=== PATIENT | male | born 1950 | race Caucasian/White ===

== ENCOUNTER 2018-11-28 11:33 | Emergency (ER) | payer BC ==
[2018-11-28 12:00] VITALS: BP 119/85
--- NOTE | 2018-11-28 12:20 | UC ---
Laceration HPI - HPI Summary HPI Summary: 68 year old male who hit the framing of vincenzoing he was buidling causing a laceration to the top of his head, no LOC. Tetanus up to date. - History Of Current Complaint Chief Complaint: UCLaceration Stated Complaint: HEAD LAC Time Seen by Provider: 11/28/18 12:07 Hx Obtained From: Patient Laceration Location: Head Mechanism Of Injury: Blunt Trauma Onset/Duration: Sudden Onset Severity: Mild Pain Intensity: 1 Aggravating Factors: Nothing - Allergies/Home Medications Allergies/Adverse Reactions: Allergies Allergy/AdvReac Type Severity Reaction Status Date / Time No Known Allergies Allergy Verified 11/28/18 12:01 PMH/Surg Hx/FS Hx/Imm Hx Previously Healthy: Yes - Surgical History Surgical History: None Surgery Procedure, Year, and Place: APPY, BILATERAL ARTHROSCOPY WITH MENISCUS REPAIR - Family History Known Family History: Positive: Hypertension - Social History Alcohol Use: Daily Alcohol Amount: BEER DAILY Substance Use Type: None Smoking Status (MU): Never Smoked Tobacco - Immunization History Most Recent Tetanus Shot: 2018 Review of Systems All Other Systems Reviewed And Are Negative: Yes Skin: Positive: Other - laceration top of head, bleeding controlled Is Patient Immunocompromised?: No Physical Exam Triage Information Reviewed: Yes Appearance: Well-Appearing, No Pain Distress, Well-Nourished Vital Signs: Initial Vital Signs Temp 98.7 F 11/28/18 11:57 Pulse 63 11/28/18 11:57 Resp 12 11/28/18 11:57 BP 119/85 11/28/18 11:57 Pulse Ox 99 11/28/18 11:57 Vital Signs Reviewed: Yes Eyes: Positive: Conjunctiva Clear - PERRLA, EOMI Musculoskeletal Exam: Normal Musculoskeletal: Positive: Other: - Skull intact and non-tender Neurological Exam: Normal Neurological: Positive: Other: - CN II-XII intact Psychological Exam: Normal Skin: Positive: Other - 3.0 cm jagged laceration to top of head. Bleeding controlled Laceration Repair - Laceration Repair 1 Description: Irregular Laceration Size After Repair: Length (cm) - 3.0 cm Modified For Repair: No Cleansing Completed Via Routine Prep: Yes Irrigation With Pressure Irrigation Device: Yes Closure Material: Jordana - 2 jordana applied without difficulty Closure Method: Single Layer Suture Of: Skin Laceration Course/Dx - Course/Dx Course Of Treatment: Pt is awake and alert here. He chose not to have suturing or local anesthesia "Just do whatever is faster". He did not care about scarring because it is the top of his head. Last tetanus was about 2-3 years ago. - Diagnosis Provider Diagnosis: Laceration of head Discharge ED - Sign-Out/Discharge Documenting (check all that apply): Patient Departure All imaging exams completed and their final reports reviewed: No Studies - Discharge Plan Condition: Good Disposition: HOME Patient Education Materials: Head Injury (ED), Staple Care (ED) Referrals: Lauro Paris MD [Primary Care Provider] - Additional Instructions: Tylenol as needed for pain. Follow up with your primary care provider on 5 days for staple removal. Go to the ER via cALLING [phone] if you have any signs of head injury...PLEASE SHARE INSTRUCTIONS WITH YOUR CO-WORKERS. - Billing Disposition and Condition Condition: GOOD Disposition: Home
== END 2018-11-28 12:25 | disposition home or self-care (01) ==
LOC: UCEAST 11:33
DX: S01.91XA Laceration without foreign body of unspecified part of head, initial encounter (principal); W22.8XXA Striking against or struck by other objects, initial encounter; Y92.9 Unspecified place or not applicable
CPT/HCPCS: 12001; 99211; G0463

== ENCOUNTER 2019-02-21 08:44 | Inpatient (IN) | payer BC ==
--- NOTE | 2019-02-20 17:10 | HP ---
DATE OF ADMISSION: 02/21/2019. DATE OF OFFICE VISIT: 02/17/2019. ATTENDING SURGEON: Dr. Trupti Cartagena * (dictated by MICHAEL Canchola). PROCEDURE: Right total knee arthroplasty. CHIEF COMPLAINT: Right knee pain. HISTORY OF PRESENT ILLNESS: Mr. Burgess is a 68-year-old gentleman with severe end- stage osteoarthritis of the right knee. He has failed conservative treatment and elected to proceed with a right total knee arthroplasty. PAST MEDICAL HISTORY: Enlarged prostate. PAST SURGICAL HISTORY: Appendectomy, right knee surgery times one, left knee surgery times two. CURRENT MEDICATIONS: Finasteride, Ambien, and Zaleplon. ALLERGIES: No known drug allergies. FAMILY HISTORY: Colon cancer and prostate cancer. SOCIAL HISTORY: He is a 68-year-old gentleman who lives alone. He does not smoke or use drugs or alcohol. REVIEW OF SYSTEMS: A complete 14 point review of systems was reviewed with the patient. It was all negative or noncontributory. PHYSICAL EXAMINATION GENERAL: He is well-developed, well-nourished, in no acute distress. VITAL SIGNS: He stands 69 inches tall, weighs 155 pounds. Blood pressure 140/ 85, heart rate 71. HEENT: Normocephalic, atraumatic. NECK: Supple. No palpable lymph nodes. CARDIO: Regular rate and rhythm. Strong S1, S2. PULMONARY: Lungs are clear to auscultation bilaterally. ABDOMEN: Soft, nontender, nondistended. MUSCULOSKELETAL: Right lower extremity: The skin is intact. There are no open wounds or abrasions. He has a moderate effusion of the right knee joint. He has a varus deformity of the knee. Range of motion is 10 to 110 degrees of flexion with patellofemoral crepitus. He has a 2+ dorsalis pedis pulse. He is able to dorsiflex and plantarflex and has intact sensation. NEUROLOGIC: He is alert and oriented times three. ASSESSMENT AND PLAN: Mr. Burgess is a 68-year-old gentleman with severe end- stage osteoarthritis of the right knee. He has failed conservative treatment and elected to proceed with a right total knee arthroplasty. His surgery is scheduled for 02/21/[address] Cartagena discussed the risks and benefits of the surgery at today's visit and all of his questions were answered. He will follow-up with Dr. Cartagena two weeks after the surgery. Because of his known enlarged prostate, we are asking the nurses use a coude catheter for Mr. Burgess prior to his surgery. MICHAEL CANCHOLA [id number]/[facility] #: [id number] [place]
[~2019-02-21 08:44] MED LIST: Acetaminophen TAB* 325 MG PO ONE; Buffered Lidocaine 1% SYRIN* 1 ML/SYRINGE INTRADERM ONE; Famotidine IV* 10 MG/ML 2 ML (20 mg) IV ONE; Gabapentin CAP(*) 300 MG PO ONE; Lactated Ringers 1000 ML Bag* 1,000 ML IV SCH; Tranexamic Acid 1,000 MG in NS 0.9% 50 ML* (outpatient use) IV SCH; celeCOXIB CAP* 100 MG PO ONE
--- OUTSIDE RECORDS SUMMARY | 2019-02-21 08:47 | XMS REPORT | Continuity of Care Document ---
:1950 External Reference #:[id number] Author Name Trupti Cartagena M.D. (transmitted by agent of provider Lucero Jessica) Address [address] [place] [id number] Care Team Providers Name Role Phone Lauro Paris MD - Family Medicine Care Team Information Insurance Sales Producer Hermes Jauregui, PT, MPS, OCS Care Team Information Insurance Sales Producer - Physical Therapist Problems Active Problems Provider Date Benign paroxysmal positional vertigo Miguel Navarrete M.D. Onset: 2014 Viral labyrinthitis Miguel Navarrete M.D. Onset: 05/10/2014 Social History Type Date Description Comments Sex Unknown Tobacco Use Start: Unknown Never Smoked Cigarettes Tobacco Use Start: Unknown Never Smoked Cigars Tobacco Use Start: Unknown Never Smoked A Pipe Smokeless Tobacco Never Used Smokeless Tobacco ETOH Use Consumes 1 beer per day Tobacco Use Start: Unknown Patient has never smoked Smoking Status Reviewed: 02/17/19 Patient has never smoked Exercise Type/Frequency Exercises regularly Allergies, Adverse Reactions, Alerts Description No Known Drug Allergies Medications Active Medications SIG Qnty Indications Ordering Provider Date Lauro Rubin MD 10mg Capsules FinChad Sol MD 5mg Tablets Zolpidem Tartrate ER TK 1 T PO AT Unknown Bedtime. Maximum 12.5mg Tablets ER D Dose Of 1 T Per Day. MDD 1 Immunizations Description No Information Available Vital Signs Date Vital Result Comment 02/17/2019 9:04am Height 69 inches 5'9" Weight 159.00 lb Heart Rate 71 /min BP Systolic 140 mmHg BP Diastolic 85 mmHg Body Temperature 97.9 F Pain Level 2 BMI (Body Mass Index) 23.5 kg/m2 12/19/2018 2:16pm Height 69 inches 5'9" Weight 155.00 lb Heart Rate 62 /min BP Systolic 128 mmHg BP Diastolic 78 mmHg Body Temperature 96.6 F Pain Level 4 BMI (Body Mass Index) 22.9 kg/m2 Results Description No Information Available Procedures Description No Information Available Medical Devices Description No Information Available Encounters Type Date Location Provider Dx Diagnosis Office Visit 12/19/2018 [facility] Trupti Cartagena, M17.11 [facility], [facility] M21.161 Varus deformity, not elsewhere classified, right knee M25.561 Pain in right knee Assessments Date Code Description Provider 02/17/2019 M21.161 Varus deformity, not elsewhere classified, Trupti Cartagena M.D. right knee 02/17/2019 M25.561 Pain in right knee Trupti Cartagena M.D. 02/17/2019 M17.11 Unilateral primary osteoarthritis, right knee Trupti Cartagena M.D. 12/19/2018 M17.11 Unilateral primary osteoarthritis, right knee Trupti Cartagena M.D. 12/19/2018 M21.161 Varus deformity, not elsewhere classified, Trupti Cartagena M.D. right knee 12/19/2018 M25.561 Pain in right knee Trupti Cartagena M.D. Plan of Treatment Future Appointment(s):03/10/2019 3:30 pm - Trupti Cartagena M.D. at [facility] at Gzwbdr3402/21/2019 1:30 pm - Andres Tadeo PA-C at [facility] at Rriusf9402/21/2019 1:30 pm - MICHAEL Mason at [facility] at Apfmlu6002/21/2019 1:30 pm - Trupti Cartagena M.D. at [facility] at [id number]/17/2019 - Trupti Cartagena M.D.M21.161 Varus deformity, not elsewhere classified, right kneeFollow up:Follow up: 2 weeks after cqlmeejR35.561 Pain in right kneeM17.11 Unilateral primary osteoarthritis, right knee Functional Status Description No Information Available Mental Status Description No Information Available Referrals Description No Information Available
[2019-02-21] MEDS ORDERED: Gabapentin CAP(*) 300 MG ONE (09:09)
[2019-02-21] MEDS ORDERED: ceFAZolin 2 GM in NS PREMIX(*) 2 GM/100 ML BAG IVPB ONE (09:09)
[2019-02-21] MEDS ORDERED: celeCOXIB CAP* 100 MG ONE (09:09)
[2019-02-21] MEDS ORDERED: Acetaminophen TAB* 325 MG ONE ×2 (09:09→09:24)
[2019-02-21] MEDS ORDERED: Buffered Lidocaine 1% SYRIN* 1 ML/SYRINGE INTRADERM ONE (09:09)
[2019-02-21] MEDS ORDERED: Famotidine IV* 10 MG/ML 2 ML (20 mg) ONE (09:09)
[2019-02-21] MEDS ORDERED: ROPIVACAINE 5 MG/ML 30 ML BTL (0.5%) ONE ×2 (10:16→11:07)
[2019-02-21] MEDS ORDERED: Midazolam* 1 MG/ML 5 ML VIAL (5 MG) ONE (10:22)
[2019-02-21] MEDS ORDERED: fentaNYL* 50 MCG/ML 2 ML VIAL (100 MCG VIAL) ONE (10:48)
[2019-02-21] MEDS ORDERED: Sevoflurane* BOTTLE ONE (10:49)
[2019-02-21] MEDS ORDERED: Desflurane* 240 ML INH ONE (10:49)
[2019-02-21] MEDS ORDERED: Propofol* 10 MG/ML 20 ML BTL ONE ×2 (11:26→11:27)
[2019-02-21] MEDS ORDERED: diPHENhydraMINE IV* 50 MG/ML 1 ml VIAL (BENADRYL) IV PRN (13:51)
[2019-02-21] MEDS ORDERED: Magnesium Hydroxide LIQ* 30 ML UDC PO PRN (13:51)
[2019-02-21] MEDS ORDERED: diPHENhydraMINE PO* 25 MG PO PRN (13:51)
[2019-02-21] MEDS ORDERED: Ondansetron ODT TAB* 4 MG PO PRN (13:51)
[2019-02-21] MEDS ORDERED: oxyCODONE TAB* 5 MG TAB PO PRN (13:51)
[2019-02-21] MEDS ORDERED: Polyethylene Glycol 3350* 17 GM PACKET PO PRN (13:51)
[2019-02-21] MEDS ORDERED: Ondansetron INJ* 2 MG/ML VIAL IV PRN (13:51)
[2019-02-21] MEDS ORDERED: Morphine INJ* 2 MG/ML 1 ML SYRINGE (TWO MG - NEW SYRINGE VERSION) IV PRN (13:51)
[2019-02-21] MEDS ORDERED: Ondansetron TAB* 4 MG PO PRN (13:51)
[2019-02-21] MEDS ORDERED: ZALEPLON 10 MG PO PRN (13:53)
--- NOTE | 2019-02-21 15:32 | PN ---
Progress Note - Progress Note Date of Service: 02/21/19 Note: resting comfortably with no significant complaints; Able to DF/PF, 2+ DP pulse, and intact sensation
[2019-02-21] MEDS: Lactated Ringers 1000 ML Bag* 1,000 ML IV SCH (15:53)
[2019-02-21] MEDS: traMADol TAB* 50 MG PO PRN ×2 (16:02→22:34)
[2019-02-21] MEDS: oxyCODONE/Acetamin 5/325 MG* TAB PO PRN (16:35)
[2019-02-21] MEDS: Acetaminophen TAB* 325 MG PO SCH (16:38)
--- NOTE | 2019-02-21 17:26 | PN ---
Progress Note - Progress Note Date of Service: 02/21/19 Note: Pt was a CAT call after he got nauseated and had a 30 sec syncopal episode when in a recliner. His stated that his eyes "rolled back" and he became unresponsive. His vitals showed Hr at 47-he had been bradycardic as per d/w his nurse. After the syncope-when CAT arrived pt was AAOx3, vomiting and c/o nausea. ECG shows no acute abn. Pt is neurologically intact. Resp: CTA b/l CV: RRR, no murmur, Abd :soft, NT, BS+ Extr: R knee in cryo unit, no pedal edema b/l AP: syncope-suspect vagal episode in pt who was about to voint. Tx with Zofran. Advised to limit diet Check labs Telem x 12 hr overnight D/w DR. Cartagena
[2019-02-21 18:18] LABS: BUN/Creatinine Ratio 17.6 (8-20); Blood Urea Nitrogen 12 mg/dL (6-24); CO2 Carbon Dioxide 24 mmol/L (22-32); Calcium 8.7 mg/dL (8.6-10.3); Chloride 107 mmol/L (101-111); EGFR African American 140.3 (>60); Glucose 94 mg/dL (70-100); Sodium 139 mmol/L (135-145)
[2019-02-21 18:26] LABS: ABS Basophils 0.1 10^3/ul (0-0.2); ABS Lymphocytes 0.9 10^3/ul (1.0-4.8); ABS Monocytes 0.5 10^3/ul (0-0.8); ABS Neutrophils 8.8 10^3/ul (1.5-7.7); Eosinophil % 0.4 %; Hematocrit 38 % (42-52); Lymphocyte % 8.5 %; Mean Corpuscular HGB Conc 34 g/dL (31-36); Mean Corpuscular Hemoglobin 32 pg (27-31); Mean Corpuscular Volume 93 fL (80-94); Mean Platelet Volume 8.4 fL (7.4-10.4); Platelet Count 154 10^3/uL (150-450); Red Cell Distribution Width 14 % (10-15); White Blood Count 10.3 10^3/uL (3.5-10.8)
--- NOTE | 2019-02-21 19:08 | OP ---
Operative Report - Blank - Operative Report Date of Operation: 02/21/19 Note: GALO ANNE 1950 Date of Surgery: 02/21/19 Trupti Cartagena MD Local Owner Operator Truck Driver: Priscilla RODRIGUEZ did help throughout the procedure with preparation of the knee, wound retraction, manipulation of the knee, and wound closure. Anesthesiologist: Dr Monterroso Anesthesia Type: Spinal Preoperative Diagnosis: Right severe degenerative osteoarthritis of the knee Postoperative Diagnosis: As above Procedure Performed: Right Total Knee Arthroplasty Tourniquet time: 56 minutes Complications: None Specimen: Bone and cartilage from the right knee joint sent to pathology. Hardware Used: Cemented Bell and Nephew total knee hardware was used - For the femur a size 6 right oxinium legion posterior stabilized femoral component, for the tibia a size 5 right manju II tibial baseplate, for the insert a size 9mm posterior stabilized articular polyethylene insert, and for the patella a size 32 3-peg all poly patella. Brief History/Indication: GALO ANNE was known in clinic and had a history of severe right knee pain and swelling. He failed conservative treatment with anti- inflammatories, pain pills, intra-articular injections and physical therapy. He elected to undergo right total knee arthroplasty due to continued pain and decreased quality of life. Radiographs showed severe end stage osteoarthritis of the knee with bone on bone contact. Informed consent was obtained from the patient. He understood the risks of surgery included but were not limited to: bleeding, infection, damage to nearby structures, intraoperative fracture, nerve palsy, failure of the hardware, early loosening, knee stiffness or loss of motion, anesthesia complications, stroke, heart attack, blood clot and . He wished to proceed. Intra-Operative Findings: Intraoperatively the patient was noted to have severe loss of cartilage in all 3 compartments of the knee. Description of the Procedure: GALO ANNE was identified in the preanesthesia unit. His right knee was marked as the correct operative side. Informed consent was signed and placed in the chart. The patient was taken to the operating room and placed under anesthesia without complication. A hernandez catheter was placed. A tourniquet was placed on the right thigh. The right lower extremity was prepped and draped in the usual sterile fashion. Preoperative time-out was made to correctly identify the patient, side and site. Appropriate intraoperative antibiotics were given within one hour of incision. Tourniquet was inflated. A midline incision was made and carried sharply down to the extensor mechanism. A new 10 blade was used to make a standard medial parapatellar arthrotomy. The patella was subluxed laterally. Electrocautery was used to dissect soft tissue off the superomedial tibia to the midsagittal plane. The knee was flexed up. The anterior horn of the lateral meniscus and the ACL were sharply incised. A drill was used to enter the distal femur. The intramedullary distal femoral cutting guide was pinned on the distal femur. The oscillating saw was used to make the distal femoral cut. The external rotation guide was pinned on the distal femur and the distal femur was sized to a size 6. The size 6 multi-cutting jig was pinned on the distal femur. The oscillating saw was used to make the appropriate 4 chamfer cuts. Next the PCL was completely released. The extramedullary tibial cutting guide was pinned on the proximal tibia and the oscillating saw was used to make the proximal tibial cut perpendicular to the mechanical axis of the tibia. The bone was carefully removed. The knee was brought out into full extension. The spacer block was placed and had excellent fit with the knee in full extension. The medial and lateral ligaments were well balanced. The flexion and extension gaps were well balanced. The knee was flexed up. Lamina risk and compliance analytics director was placed both medially and laterally. Any remaining meniscus was removed with electrocautery. Curved osteotome was used to remove any posterior osteophytes. The tibial tray and drop edi were placed and confirmed a satisfactory tibial cut. The size 6 right femoral trial was impacted onto the distal femur. This trial had excellent fit and stability. The box for the posterior stabilized implant was prepared using a box cut osteotome and a reamer. Next a tibial tray trial and 9 mm insert trial was placed. The knee was taken through a range of motion and had full extension to 130 degrees of flexion. Patellofemoral tracking was satisfactory. The patella was inverted and sized to a size 32. Three peg holes were drilled through the size 32 drill guide. The trial patella was placed and the knee was taken through a range of motion. There was satisfactory patellofemoral tracking. All trials were removed. The tibia was subluxed anteriorly and sized to a size 5. The proximal tibial was prepared with a size 5 keel punch. All bony cut surfaces were irrigated with sterile saline and dried. Final implants were cemented into place starting with the tibia, followed by the femur, and last the patella. A 9 mm insert trial was placed and the knee was brought into full extension. Tourniquet was turned down and the knee was copiously irrigated with sterile saline. Electrocautery was used to obtain meticulous hemostasis. Once the cement had fully cured, the insert trial was removed. Any excess cement was removed from around the hardware and capsule. Final insert chosen was a 9 mm posterior stabilized Manju II articular insert size 5-6. Stability of the insert was checked and noted to be stable. The extensor mechanism was closed using number 1 vicryls. The rest of the incision was closed in a layered fashion using 0 and 2-0 vicryls. The skin was closed using 3-0 nylon suture. Sterile xeroform, 4x4s and webril were used to cover the incision. Manuel wrap and cold pack were used to cover the dressings. The patients anesthesia was reversed without difficulty. He was taken to the PACU in stable condition. Intended weight-bearing will be as tolerated.
[2019-02-21 19:24] LABS: Anion Gap 8 mmol/L (2-11)
[2019-02-21] MEDS: ceFAZolin 1 GM ADVAN(*) 1 GM in NS 0.9% 50 ML* 50 ML IVPB SCH (20:10)
[2019-02-21] MEDS ORDERED: Zolpidem TAB* 10 MG PO PRN (22:00)
[2019-02-21] MEDS: Docusate CAP* 100 MG PO SCH (22:34)
[2019-02-21] MEDS: Magnesium Hydroxide LIQ* 30 ML UDC PO SCH (22:34)
[2019-02-21] MEDS: Finasteride TAB* 5 MG PO SCH (22:35)
[2019-02-21] MEDS: Cyclobenzaprine TAB* 10 MG PO PRN (22:35)
[2019-02-22] MEDS: Lactated Ringers 1000 ML Bag* 1,000 ML IV SCH (01:30)
[2019-02-22] MEDS: oxyCODONE/Acetamin 5/325 MG* TAB PO PRN ×4 (01:32→16:15)
[2019-02-22] MEDS: Acetaminophen TAB* 325 MG PO SCH ×3 (01:48→17:53)
[2019-02-22] MEDS: ceFAZolin 1 GM ADVAN(*) 1 GM in NS 0.9% 50 ML* 50 ML IVPB SCH ×2 (03:40→11:18)
[2019-02-22 05:26] LABS: Hematocrit 37 % (42-52); Hemoglobin 12.6 g/dL (14.0-18.0); Mean Platelet Volume 8.9 fL (7.4-10.4); Platelet Count 147 10^3/uL (150-450)
[2019-02-22] MEDS: Cyclobenzaprine TAB* 10 MG PO PRN (05:32)
[2019-02-22] MEDS: traMADol TAB* 50 MG PO PRN ×2 (05:32→15:20)
[2019-02-22 05:41] LABS: BUN/Creatinine Ratio 17.4 (8-20); Calcium 8.2 mg/dL (8.6-10.3); Potassium 3.3 mmol/L (3.5-5.0)
[2019-02-22] MEDS: Vitamin THERAPEUTIC TAB PO SCH (08:35)
[2019-02-22] MEDS: Apixaban* 2.5 MG TAB PO SCH ×2 (08:35→21:18)
[2019-02-22] MEDS: Docusate CAP* 100 MG PO SCH ×2 (08:35→21:19)
[2019-02-22] MEDS: Magnesium Hydroxide LIQ* 30 ML UDC PO SCH ×2 (08:35→21:19)
[2019-02-22] MEDS: Potassium Chlor TAB* 20 MEQ TAB.ER PO SCH ×2 (09:09→21:18)
--- NOTE | 2019-02-22 10:52 | PN ---
Progress Note - Progress Note Date of Service: 02/22/19 SOAP: Subjective: []Patient seen and examined OOB in chair. CAT call last night for syncopal episode thought to be a vagal episode. He feels mildly nauseous without abd pain and no vomiting this morning. Denies CP, irregular heartbeats, SOB, dizziness, lightheadedness. Right knee pain is well controlled. Objective: []Gen: NAD, has cool cloth on his head RLE: RIght knee dressing CDI, thigh soft, DF/PF intact, DP2+, sensation intact to light Calves supple and nontender without erythema, edema or palpable cords Assessment: []POD 1 sp RTK Plan: []WBAT PT tele monitored in NSR, no bump in trops Low grade temp overnight which has resolved. Monitor, encourage IS use. Replaced Potassium with 20 meq bid Anticipate DC home tomorrow Vital Signs Temp 98.5 F 02/22/19 10:03 Pulse 71 02/22/19 07:33 Resp 18 02/22/19 08:35 BP 148/64 02/22/19 07:33 Pulse Ox 99 02/22/19 08:00 Intake & Output 02/21/19 02/22/19 02/22/19 18:59 06:59 18:59 Intake Total 1700 1458 210 Output Total 800 1850 225 Balance 900 -392 -15 Weight 159 lb 12.8 oz Intake: IV Fluids 1700 980 LR 980 lr 1700 IVPB 58 ABX - CEFAZOLIN 58 Oral 420 210 Output: Urine 225 Moses 700 1850 Estimated Blood Loss 100 Other: # Bowel Movements 0 Laboratory Last Values WBC 10.3 10^3/uL (3.5-10.8) 02/21/19 18:21 RBC 4.10 10^6 /uL (4.18-5.48) L 02/21/19 18:21 Hgb 12.6 g/dL (14.0-18.0) L 02/22/19 04:36 Hct 37 % (42-52) L 02/22/19 04:36 MCV 93 fL (80-94) 02/21/19 18:21 MCH 32 pg (27-31) H 02/21/19 18:21 MCHC 34 g/dL (31-36) 02/21/19 18:21 RDW 14 % (10-15) 02/21/19 18:21 Plt Count 147 10^3/uL (150-450) L 02/22/19 04:36 MPV 8.9 fL (7.4-10.4) 02/22/19 04:36 Neut % (Auto) 85.6 % 02/21/19 18:21 Lymph % (Auto) 8.5 % 02/21/19 18:21 [place] % (Auto) 5.0 % 02/21/19 18:21 Eos % (Auto) 0.4 % 02/21/19 18:21 Baso % (Auto) 0.5 % 02/21/19 18:21 Absolute Neuts (auto) 8.8 10^3/ul (1.5-7.7) H 02/21/19 18:21 Absolute Lymphs (auto) 0.9 10^3/ul (1.0-4.8) L 02/21/19 18:21 Absolute Monos (auto) 0.5 10^3/ul (0-0.8) 02/21/19 18:21 Absolute Eos (auto) 0.0 10^3/ul (0-0.6) 02/21/19 18:21 Absolute Basos (auto) 0.1 10^3/ul (0-0.2) 02/21/19 18:21 Absolute Nucleated RBC 0.0 10^3/ul 02/21/19 18:21 Nucleated RBC % 0.0 02/21/19 18:21 Sodium 135 mmol/L (135-145) 02/22/19 04:36 Potassium 3.3 mmol/L (3.5-5.0) L 02/22/19 04:36 Chloride 103 mmol/L (101-111) 02/22/19 04:36 Carbon Dioxide 23 mmol/L (22-32) 02/22/19 04:36 Anion Gap 9 mmol/L (2-11) 02/22/19 04:36 BUN 12 mg/dL (6-24) 02/22/19 04:36 Creatinine 0.69 mg/dL (0.67-1.17) 02/22/19 04:36 Est GFR ( Amer) 138.0 (>60) 02/22/19 04:36 Est GFR (Non-Af Amer) 114.0 (>60) 02/22/19 04:36 BUN/Creatinine Ratio 17.4 (8-20) 02/22/19 04:36 Glucose 140 mg/dL (70-100) H 02/22/19 04:36 Calcium 8.2 mg/dL (8.6-10.3) L 02/22/19 04:36 Troponin I 0.00 ng/mL (<0.03) 02/21/19 17:48
[2019-02-22] MEDS: Finasteride TAB* 5 MG PO SCH (21:18)
[2019-02-23] MEDS: Acetaminophen TAB* 325 MG PO SCH ×2 (02:07→09:44)
[2019-02-23] MEDS: traMADol TAB* 50 MG PO PRN (05:54)
[2019-02-23 06:42] LABS: Hematocrit 36 % (42-52); Hemoglobin 12.9 g/dL (14.0-18.0); Mean Platelet Volume 8.9 fL (7.4-10.4); Platelet Count 150 10^3/uL (150-450)
[2019-02-23] MEDS: Apixaban* 2.5 MG TAB PO SCH (08:25)
[2019-02-23] MEDS: Vitamin THERAPEUTIC TAB PO SCH (08:28)
[2019-02-23] MEDS: Docusate CAP* 100 MG PO SCH (08:28)
[2019-02-23] MEDS: Potassium Chlor TAB* 20 MEQ TAB.ER PO SCH (08:28)
[2019-02-23] MEDS: Magnesium Hydroxide LIQ* 30 ML UDC PO SCH (08:29)
--- NOTE | 2019-02-23 09:30 | DS ---
Orthopedic Discharge Summary - Discharge Summary Date of Admission:02/21/19 Date of Discharge: 02/23/19 Date of Surgery: 02/21/19 Attending Orthopedic Provider: Dr Cartagena Pre-operative Diagnosis: Right knee osteoarthritis Operative Procedure: right total knee replacement Disposition of Patient: home with outpatient physical therapy, no home nurse Condition of Patient: stable History: GALO ANNE is a 68 year old M with years of increasingly severe right knee pain. Patient has failed conservative management and has elected to undergo a right total knee replacement Hospital Course: GALO was admitted to [facility] on 02/21/19. Patient underwent a right total knee replacement without complication followed by a brief recovery in PACU and transfer to the Short Stay Surgical Unit in stable condition. Our hospitalist service, physical therapy also participated in this patients care. POD 0 he had a CAT call for a vagal episode with syncope. He was tele monitored for 12 hours, troponins negative. Post-op day 1: patient was alert and in no acute distress. Dressing was clean, dry and intact. Operative extremity dorsiflexion and plantarflexion intact, sensation intact to light touch distally, DP2+. Post-op day two: dressing was changed, incision was clean, dry and intact. Patient was deemed to be medically and orthopedically stable for discharge. Physical therapy goals were met. Home Medications Medication Instructions Recorded Confirmed Type Zaleplon [Sonata] 10 mg PO BEDTIME PRN 01/29/16 02/21/19 History Finasteride TAB* [Proscar TAB*] 5 mg PO BEDTIME 02/17/19 02/21/19 History Zolpidem Tartrate [Zolpidem 12.5 mg PO BEDTIME PRN 02/17/19 02/21/19 History Tartrate ER] Acetaminophen TAB* [Tylenol TAB*] 975 mg PO Q8H tab 02/23/19 Rx Apixaban* [Eliquis*] 2.5 mg PO BID #60 tab 02/23/19 Rx Docusate CAP* [Colace Cap*] 100 mg PO BID PRN #30 cap 02/23/19 Rx traMADol TAB* [Ultram*] 50 mg PO Q6H PRN #50 tab MDD 8 02/23/19 Rx Discharge Instructions following Orthopedic Surgery: Activity: * Weight Bearing as tolerated * Continue physical therapy and occupational therapy exercises as shown * Start outpatient physical therapy Wound care: * OK to shower on post-op day 3 (02/24/19), no bathing, swimming, or submerging wound. * Use gentle soap, pat dry. Cover with gauze, RALPH wrap or tape. Call Orthopedic office for: * Increased drainage * Redness * Increased pain * Fever Go to ER with shortness of breath or chest pain. Diet: * Regular diet * Increase fluids and fiber to prevent constipation. * Continue to use stool softeners, call office if no bowel motion within 48 hours. Medications See Home Medication List in your packet for medications that you should take after discharge. DVT Prophylaxis: Increases bleeding tendency Eliquis Dosin.5 mg, 1 tab every 12 hours x 30 days Pain Control: Tramadol 50 mg take 1 tab for moderate pain and 2 tabs for severe pain every 6 hours as needed. Hold for sedation and wean off as soon as pain allows Antibiotics are required prior to any dental work. FOLLOW UP: Follow up with [Osiel] Within 10-14 days, call for appointment Please call our office with any questions or concerns ([phone]) [facility] [place]
[2019-02-23 11:23] VITALS: BP 124/71
== END 2019-02-23 12:32 | disposition home or self-care (01) | DRG 302 ==
LOC: AA 08:44 → SSU 13:51
PROVIDERS: ADMIT Orthopaedic Surgery Adult Reconstructive Orthopaedic Surgery; ATTEND Orthopaedic Surgery Adult Reconstructive Orthopaedic Surgery
PROC: 0SRC069 Replacement of Right Knee Joint with Oxidized Zirconium on Polyethylene Synthetic Substitute, Cemented, Open Approach (ICD-10-PCS; principal; 2019-02-21 11:30)
DX: M17.0 Bilateral primary osteoarthritis of knee (principal); N40.0 Benign prostatic hyperplasia without lower urinary tract symptoms; E78.2 Mixed hyperlipidemia; M25.761 Osteophyte, right knee; G47.00 Insomnia, unspecified; R11.0 Nausea; R00.1 Bradycardia, unspecified; R55 Syncope and collapse; Z79.899 Other long term (current) drug therapy; Z80.42 Family history of malignant neoplasm of prostate; Z85.828 Personal history of other malignant neoplasm of skin
CPT/HCPCS: 36415; 80048; 84132; 84484; 85014; 85018; 85025; 85049; 88305; 88311; 93005; A9270-GY; C1776; J0690; J2250; J2270; J2405; J2704; J2795; J3010